=== PATIENT | male | born 1930 | race Caucasian/White ===

== ENCOUNTER 2016-09-07 12:08 | Emergency (ER) | payer MEDICARE, OTHER ==
[2016-09-07 12:19] VITALS: BP 165/69
--- NOTE | 2016-09-08 07:51 | ER ---
Date of Service: 09/07/2016 SUBJECTIVE: Wyatt presents to the emergency room with complaints of chlorine gas exposure. The patient states that he had mixed some Clorox bleach with some water and vinegar and states that he was using this to clean his bathtub. He states that the mixture began to vaporize and began experiencing difficulties with breathing, chest tightness, and cough. The patient lives approximately [place] minutes from [place] and states that by the time he arrived here to the hospital, his symptoms had resolved. The patient states that by the time he was seen in the ER, he was no longer experiencing any chest pain, shortness of breath, or other symptoms. PAST MEDICAL HISTORY: 1. Hypertension. 2. COPD. 3. Dyslipidemia. 4. Coronary artery disease. 5. Hypertension. MEDICATIONS: 1. Norvasc. 2. Nitrostat. 3. Multivitamin. 4. Lopressor. 5. GenTeal eye drops. 6. Aspirin. 7. DuoNeb. 8. Lipitor. ALLERGIES: NKDA. REVIEW OF SYSTEMS: HEENT: Denies any eye discomfort, sore throat, rhinorrhea, or congestion. He states that he was experiencing some throat discomfort at the onset of the inhalation. Respiratory: Again complains of resolved chest tightness and burning, dyspnea and cough. Cardiac: Denies any chest pain, back pain, arm pain, or other worrisome signs or symptoms. GI: No nausea, vomiting, or diarrhea. No melena, hematochezia, or hematemesis. : Denies any dysuria. Neurologic: Denies any fainting, blackouts, or lightheadedness. PHYSICAL EXAMINATION: General: This is an 85-year-old male patient, who is in no acute distress. Vital Signs: Blood pressure is 168/69, heart rate is 71, temperature is 35.5, respiratory rate is 20, O2 saturations 96%. Skin: Warm, pink, and dry. HEENT: Eyes, PERRLA. Extraocular movements intact. Ears, TMs are clear. Mouth, oral mucosa is moist. Lungs: Clear to auscultation. Heart: Regular rate and rhythm. Abdomen: Soft, nontender. There is no hepatosplenomegaly noted. There is no mass noted. Extremities: Without edema. Neurologic: He is alert, oriented, answers all questions appropriately. His speech is fluent. His gait is within normal limits. LABORATORY DATA: PA and lateral chest x-ray was obtained. There was no evidence of any acute infiltrate or other pathology. EMERGENCY ROOM COURSE: I did contact poison control center. They stated that as his symptoms had completely resolved, he did not require admission or further workup; however, I did decide to perform a chest x-ray to rule out any evidence of any chemically induced pneumonitis or pneumonia. The patient was observed in the emergency room and continued to not experience any significant symptoms and the decision was made to discharge the patient. ASSESSMENT: Exposure to chlorine gas from mixing chemicals. PLAN: The patient will be discharged. He is advised to return to the emergency room if he develops any significant shortness of breath, chest pain, or other worrisome signs or symptoms. His son states that they are working on ventilating his residence and stated that he would be able to stay elsewhere until his residence is able to be re-occupied. All questions were answered. MWK: 09/07/2016 18:42:38 MODL: 09/07/2016 23:04:35 /[id number]
== END 2016-09-07 13:10 | disposition home or self-care (01) ==
LOC: VM.ED 12:08
DX: Z77.098 Contact with and (suspected) exposure to other hazardous, chiefly nonmedicinal, chemicals (principal); I10 Essential (primary) hypertension; I25.10 Atherosclerotic heart disease of native coronary artery without angina pectoris; J44.9 Chronic obstructive pulmonary disease, unspecified; E78.5 Hyperlipidemia, unspecified
CPT/HCPCS: 71020; 99283; 99283-GF

== ENCOUNTER 2017-06-12 07:23 | Inpatient (IN) | payer MEDICARE, OTHER ==
[2017-06-12] MEDS ORDERED: Sodium Chloride 0.9% 10 ML Syringe FLUSH PRN (07:35)
[2017-06-12] MEDS ORDERED: Sodium Chloride 0.9% 1,000 ML IV ONE (07:37)
[2017-06-12] MEDS ORDERED: methylPREDNISolone Sodium Succinate 125 MG/2 ML SDV IV ONE (07:38)
[2017-06-12] MEDS ORDERED: Albuterol/Ipratropium 3.0-0.5 MG/3 ML Neb Soln NEB ONE (07:38)
[2017-06-12] MEDS ORDERED: Azithromycin 500 MG in Sodium Chloride 0.9% 250 ML IV ONE ×2 (08:17→08:28)
[2017-06-12] MEDS ORDERED: cefTRIAXone 2 GM Vial IVPUSH ONE (08:17)
[2017-06-12] MEDS ORDERED: Azithromycin 500 MG Vial ONE (08:24)
[2017-06-12 08:28] LABS: CHLORIDE,CL 105 mmol/L (98-107); SODIUM,NA 140 mmol/L (136-145)
[2017-06-12] MEDS ORDERED: Acetaminophen 325 MG Tab PO PRN (09:42)
[2017-06-12] MEDS ORDERED: Albuterol/Ipratropium 3.0-0.5 MG/3 ML Neb Soln NEB PRN (09:49)
[2017-06-12] MEDS ORDERED: Nitroglycerin 0.4 MG Tab.SL SL PRN (09:49)
[2017-06-12] MEDS ORDERED: Dextran 70/Hypromellose/PF Ophth Soln 0.9 ML UD EYEBOTH PRN (10:00)
[2017-06-12] MEDS: Albuterol/Ipratropium 3.0-0.5 MG/3 ML Neb Soln NEB SCH ×4 (10:54→22:23)
[2017-06-12] MEDS: Metoprolol Tartrate 50 MG Tab PO SCH ×2 (11:05→20:34)
[2017-06-12] MEDS ORDERED: Sodium Chloride 0.9% 500 ML IV SCH (12:45)
--- NOTE | 2017-06-12 12:54 | HP ---
CHIEF COMPLAINT: Cough and shortness of breath. HISTORY OF PRESENT ILLNESS: This is an 86-year-old, who lives independently, who has known COPD, but no longer smokes, who started with a cough productive of sputum, although it was not purulent last evening. He denies fevers. He did use his nebulizer machine. He has been using it maybe each evening around 9 p.m. but he is on no maintenance inhalers. He comes in this morning with family more short of breath. He has not been having fevers. He was 91% on room air, slightly tachycardic, wheezing. He got Solu-Medrol and a nebulizer. He is feeling better. X-ray was showing a right middle lobe infiltrate. White count 17,000. Admission was recommended and patient and family are agreeable. ALLERGIES: He has no known allergies MEDICATIONS: Aspirin. He is not on Plavix due to a history of eye hemorrhage. He is on Lopressor 50 mg 2 times a day. He is on amlodipine 5 mg daily, Lipitor 40 mg daily, DuoNeb 4 times a day p.r.n., Nitrostat as needed for chest pain, multivitamin, and eyedrops Genteal. SOCIAL HISTORY: The patient is . He lives independently out in [place] with some family nearby. He drinks 1 [employer] each evening. He quit smoking back in 2012. He was admitted that year for pneumonia, COPD exacerbation. He has 4 children. FAMILY HISTORY: His father and mother . His mother had lung cancer. MEDICAL HISTORY: A [id number] AR back in 2012. He got a stent to the mid RCA. He has COPD with no recent PFTs. In 2015, he had a FEV1 of 1.03, 54%. FEV1/FVC ratio was 47, so at least moderate obstructive pulmonary disease. 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 He got a pacemaker at that time, but it is now nonfunctional. 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 REVIEW OF SYSTEMS: General: There have been no weight changes. No fever. No chills. HEENT: He said his symptoms started with a sore throat again all starting yesterday. Cardiac: No chest pain. No palpitations. Respiratory: He has had cough. He has had shortness of breath and wheezing. Abdomen: No nausea, vomiting, abdominal pain, diarrhea, or constipation. Musculoskeletal: No new joint aches or pains. Mental status: He is alert. He is not confused. He is not depressed or anxious. Otherwise, all systems reviewed and found to be negative unless otherwise stated. PHYSICAL EXAMINATION: Vital signs: Has a weight of 60.6 kg, blood pressure is 150/69, temp 99, T-max 99.5 on admission, pulse 113, blood pressure 150/69, respiratory rate 22, O2 95 now on room air. General: He is in no acute distress. Heart: Regular rate and rhythm. S1, S2 noted. Respiratory: Lungs sounds are decreased throughout. He has some rhonchi noted in the right mid lung. There is some trace expiratory wheezing but overall air movement is decreased. Abdomen: Positive bowel sounds. Soft and nontender. Extremities: Warm and dry. No edema. Carotid pulses 2+. HEENT: He is wearing glasses. Neck: His throat is supple without lymphadenopathy. LAB WORK: Obtained did show him to have a white count of 17.6, hemoglobin 14.4, platelets 242. INR 0.9. Sodium 140, potassium 4.1, chloride 105, bicarb 27, BUN 20, creatinine 1.2, glucose 115, lactic acid 1.6, calcium 9.1, phosphorus 3.2, magnesium 1.8. ALT 22, AST 20, magnesium 0.9. Troponin less than 0.017. CRP 3.3. BNP 312. Protein 8.3, albumin 3.7. Chest x-ray again shows developing infiltrate in the right mid lung. ASSESSMENT AND PLAN: 1. Sepsis due to community-acquired pneumonia. He has received Rocephin and Zithromax already in the ER. Lactic acid was normal, but we will go ahead and repeat that around 11 a.m. We will continue Zithromax and Rocephin. 2. Chronic obstructive pulmonary disease exacerbation due to community- acquired pneumonia. We will put him on 40 mg of Solu-Medrol and schedule nebulizers. We will have incentive spirometry. 3. Community-acquired pneumonia. Sputum cultures have been ordered. Blood cultures have been done. His influenza testing was negative. 4. Essential hypertension. We will continue his home medications. 5. History of coronary artery disease. We will continue aspirin. 6. History of third-degree heart block. This was procedure related. He is slightly tachycardic currently. We will monitor him on telemetry to evaluate for any dysrhythmias. 7. History of retinal hemorrhage. We will avoid Lovenox as I do believe he will be up and ambulatory and hopefully home in a couple of days. We will put him on SCDs. The plan at this point, the patient is admitted for acute cares for the treatment of pneumonia with IV antibiotics, IV Solu-Medrol. We will repeat lab work tomorrow. He is a code level 3. No CPR intubation. Family is at bedside. MKA: 06/12/2017 09:58:58 MODL: 06/12/2017 12:08:27 /[id number]
--- NOTE | 2017-06-12 17:34 | EDM.PDOC ---
ED HPI GENERAL MEDICAL PROBLEM - General Chief Complaint: Respiratory Problem Time Seen by Provider: 06/12/17 07:30 Source of Information: Reports: Patient History Limitations: Reports: No Limitations - History of Present Illness INITIAL COMMENTS - FREE TEXT/NARRATIVE: Pt. presents to ER with complaints for cough for several days. Denies fever or chills. States that the cough is productive of yellowish sputum. He states that he uses nebulizers and was previously a heavy smoker, but his son states that he has never had a formal diagnosis of COPD. Pt. complaints of some mild GARCIA but no orthopnea or PND. He also complains of a prodrome of sinus congestion as well as sore throat several days prior to the start of the cough. Pt. lives in [place], [place]. Onset Date: 06/11/17 Location: Reports: Chest Severity: Moderate Associated Symptoms: Reports: Cough Throat Pain Score (Numeric/FACES): 2 - Related Data Allergies Allergy/AdvReac Type Severity Reaction Status Date / Time No Known Allergies Allergy Verified 06/12/17 07:50 Home Meds: Home Meds Albuterol/Ipratropium [DuoNeb 3.0-0.5 MG/3 ML] 3 ml NEB QID PRN 01/18/15 [ History] Aspirin [Halfprin] 81 mg PO DAILY 01/18/15 [History] Carboxymethylcell/Hypromellose [GenTeal 0.25-0.3% Gel Drops] 1 drop EYEBOTH DAILY PRN 01/18/15 [History] Metoprolol Tartrate [Lopressor] 50 mg PO BID 01/18/15 [History] Multivitamin [Multi-Vitamin Daily] 1 each PO DAILY 01/18/15 [History] Nitroglycerin [Nitrostat] 0.4 mg SL Q5M PRN 01/18/15 [History] amLODIPine [Norvasc] 5 mg PO DAILY 01/18/15 [History] atorvaSTATin [Lipitor] 40 mg PO DAILY 01/18/15 [History] Past Medical History HEENT History: Reports: Macular Degeneration Other HEENT History: retinal hemorrhage, presbyopia, hypermetrolpia Cardiovascular History: Reports: CAD, High Cholesterol, Hypertension Other Cardiovascular History: aortic stenosis, complete heart block, pace maker placement (no long works), s/p TAVR, electrocution and nonfatal effects of electric current Respiratory History: Reports: COPD, SOB Other Musculoskeletal History: jaw cyst - Past Surgical History HEENT Surgical History: Reports: Cataract Surgery Cardiovascular Surgical History: Reports: Valve Replacement Respiratory Surgical History: Reports: None Other Musculoskeletal Surgeries/Procedures:: 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 Social & Family History - Family History Family Medical History: Noncontributory - Tobacco Use Smoking Status *Q: Former Smoker Years of Tobacco use: 65 Used Tobacco, but Quit: Yes Month/Year Tobacco Last Used: unknown - Alcohol Use Days Per Week of Alcohol Use: 3 Number of Drinks Per Day: 1 Total Drinks Per Week: 3 - Recreational Drug Use Recreational Drug Use: No ED ROS GENERAL - Review of Systems Review Of Systems: See Below Constitutional: Reports: Malaise, Fatigue HEENT: Reports: Rhinitis, Throat Pain Respiratory: Reports: Cough, Sputum Cardiovascular: Reports: No Symptoms, Dyspnea on Exertion. Denies: Orthopnea, PND Endocrine: Reports: No Symptoms GI/Abdominal: Reports: No Symptoms : Reports: No Symptoms Musculoskeletal: Reports: No Symptoms Skin: Reports: No Symptoms Neurological: Reports: No Symptoms Psychiatric: Reports: No Symptoms Hematologic/Lymphatic: Reports: No Symptoms Immunologic: Reports: No Symptoms ED EXAM, GENERAL - Physical Exam Exam: See Below Exam Limited By: No Limitations General Appearance: Alert, WD/WN, No Apparent Distress Ears: Normal External Exam, Normal Canal, Hearing Grossly Normal, Normal TMs Nose: Normal Inspection, Normal Mucosa, No Blood Throat/Mouth: Normal Inspection, Normal Lips, Normal Teeth, Normal Gums, Normal Oropharynx, Normal Voice, No Airway Compromise Head: Atraumatic, Normocephalic Neck: Normal Inspection, Supple, Non-Tender, Full Range of Motion Respiratory/Chest: Decreased Breath Sounds, Rhonchi, Prolonged Expiration Cardiovascular: Normal Peripheral Pulses, Regular Rate, Rhythm, No Edema, No Gallop, No JVD, No Murmur, No Rub Peripheral Pulses: 4+: Radial (L), Radial (R) GI/Abdominal: Normal Bowel Sounds, Soft, Non-Tender, No Organomegaly, No Distention, No Abnormal Bruit, No Mass (Male) Exam: Deferred Rectal (Males) Exam: Deferred Back Exam: Normal Inspection, Full Range of Motion, NT Extremities: Normal Inspection, Normal Range of Motion, Non-Tender, Normal Capillary Refill, No Pedal Edema Neurological: Alert, Oriented, CN II-XII Intact, Normal Cognition, Normal Gait, Normal Reflexes, No Motor/Sensory Deficits Psychiatric: Normal Affect, Normal Mood Skin Exam: Warm, Dry, Intact, Normal Color, No Rash Lymphatic: No Adenopathy EKG INTERPRETATION Rhythm: NSR Course - Vital Signs Last Recorded V/S: Last Vital Signs Temp 36.9 C 06/12/17 13:39 Pulse 96 06/12/17 13:39 Resp 22 H 06/12/17 09:23 BP 111/53 L 06/12/17 13:39 Pulse Ox 93 L 06/12/17 13:39 - Orders/Labs/Meds Orders: Active Orders 24 hr Category Date Time Status RT Aerosol Therapy [RC] .PRN Care 06/12/17 07:38 Active Chest 2V [CR] Stat Exams 06/12/17 07:35 Taken CULTURE BLOOD [BC] Stat Lab 06/12/17 07:47 Received CULTURE BLOOD [BC] Stat Lab 06/12/17 07:52 Received Sodium Chloride 0.9% [Saline Flush] Med 06/12/17 07:35 Active 10 ml FLUSH ASDIRECTED PRN Blood Culture x2 Reflex Set [OM.PC] Stat Oth 06/12/17 07:36 Ordered Peripheral IV Insertion Adult [OM.PC] Routine Oth 06/12/17 07:36 Ordered Medication Orders Acetaminophen (Tylenol) 650 mg PO Q4H PRN PRN Reason: Pain (Mild 1-3)/fever Albuterol/Ipratropium (Duoneb 3.0-0.5 Mg/3 Ml) 3 ml NEB Q4HRRT [facility] Last Admin: 06/12/17 15:02 Dose: 3 ml Admin: 06/12/17 10:54 Dose: 3 ml Albuterol/Ipratropium (Duoneb 3.0-0.5 Mg/3 Ml) 3 ml NEB QID PRN PRN Reason: Shortness of Breath Amlodipine Besylate (Norvasc) 5 mg PO DAILY [facility] Artificial Tears (Tears Naturale Free) 0 each EYEBOTH ASDIRECTED PRN PRN Reason: dry eyes Aspirin (Halfprin) 81 mg PO DAILY [facility] Atorvastatin Calcium (Lipitor) 40 mg PO DAILY [facility] Azithromycin (Zithromax) 500 mg PO DAILY [facility] Stop: 06/16/17 23:00 Ceftriaxone Sodium (Rocephin) 1 gm IVPUSH DAILY [facility] Methylprednisolone Sodium Succinate (Solu-Medrol) 40 mg IVPUSH DAILY [facility] Metoprolol Tartrate (Lopressor) 50 mg PO BID [facility] Last Admin: 06/12/17 11:05 Dose: 50 mg Multivitamins/Minerals (Thera M Plus) 1 tab PO DAILY [facility] Nitroglycerin (Nitrostat) 0.4 mg SL Q5M PRN PRN Reason: Chest Pain Sodium Chloride (Saline Flush) 10 ml FLUSH ASDIRECTED PRN PRN Reason: Keep Vein Open Labs: Laboratory Tests 06/12/17 06/12/17 06/12/17 Range/Units 07:47 07:47 07:47 WBC 17.6 H (4.0-10.0) x10^3/uL RBC 4.63 (4.5-6.0) x10^6/uL Hgb 14.4 (14.0-18.0) g/dL Hct 43.1 (40.0-52.0) % MCV 93.1 H (78.0-93.0) fL MCH 31.1 (26.0-32.0) pg MCHC 33.4 (32.0-36.0) g/dL RDW Coeff of Seth 15.1 H (10.0-15.0) % Plt Count 242 (130-400) x10^3/uL Neut % (Auto) 84.4 H (50.0-80.0) % Lymph % (Auto) 5.8 L (25.0-50.0) % Perry % (Auto) 9.3 (2.0-11.0) % Eos % (Auto) 0.2 (0.0-4.0) % Baso % (Auto) 0.3 (0.2-1.2) % PT 9.8 (9.8-11.8) SEC INR 0.9 L (2.0-3.5) Sodium 140 (136-145) mmol/L Potassium 4.1 (3.5-5.1) mmol/L Chloride 105 (98-107) mmol/L Carbon Dioxide 27 (21-32) mmol/L Anion Gap 12.1 BUN 20 H (7-18) mg/dL Creatinine 1.2 (0.70-1.30) mg/dL Est Cr Clr Drug Dosing 36.73 mL/min Estimated GFR (MDRD) 57 Glucose 115 H (74-106) mg/dL Lactic Acid (0.4-2.0) mmol/L Calcium 9.1 (8.5-10.1) mg/dL Corrected Calcium 9.34 (8.5-10.1) mg/dL Phosphorus 3.2 (2.6-4.7) mg/dL Magnesium 1.8 (1.8-2.4) mg/dL Total Bilirubin 0.9 (0.2-1.0) mg/dL AST 20 (15-37) U/L ALT 22 (16-63) U/L Alkaline Phosphatase 102 (46-116) U/L Troponin I < 0.017 (<=0.056) ng/mL C-Reactive Protein 3.3 H (<=0.9) mg/dL NT-Pro-B Natriuret Pep 312 (<=450) pg/mL Total Protein 8.3 H (6.4-8.2) g/dL Albumin 3.7 (3.4-5.0) g/dL Globulin 4.6 Albumin/Globulin Ratio 0.80 /12/20 Range/Units 07:47 WBC (4.0-10.0) x10^3/uL RBC (4.5-6.0) x10^6/uL Hgb (14.0-18.0) g/dL Hct (40.0-52.0) % MCV (78.0-93.0) fL MCH (26.0-32.0) pg MCHC (32.0-36.0) g/dL RDW Coeff of Seth (10.0-15.0) % Plt Count (130-400) x10^3/uL Neut % (Auto) (50.0-80.0) % Lymph % (Auto) (25.0-50.0) % Perry % (Auto) (2.0-11.0) % Eos % (Auto) (0.0-4.0) % Baso % (Auto) (0.2-1.2) % PT (9.8-11.8) SEC INR (2.0-3.5) Sodium (136-145) mmol/L Potassium (3.5-5.1) mmol/L Chloride (98-107) mmol/L Carbon Dioxide (21-32) mmol/L Anion Gap BUN (7-18) mg/dL Creatinine (0.70-1.30) mg/dL Est Cr Clr Drug Dosing mL/min Estimated GFR (MDRD) Glucose (74-106) mg/dL Lactic Acid 1.6 (0.4-2.0) mmol/L Calcium (8.5-10.1) mg/dL Corrected Calcium (8.5-10.1) mg/dL Phosphorus (2.6-4.7) mg/dL Magnesium (1.8-2.4) mg/dL Total Bilirubin (0.2-1.0) mg/dL AST (15-37) U/L ALT (16-63) U/L Alkaline Phosphatase (46-116) U/L Troponin I (<=0.056) ng/mL C-Reactive Protein (<=0.9) mg/dL NT-Pro-B Natriuret Pep (<=450) pg/mL Total Protein (6.4-8.2) g/dL Albumin (3.4-5.0) g/dL Globulin Albumin/Globulin Ratio Meds: Medications Generic Name Dose Route Start Last Admin Trade Name Freq PRN Reason Stop Dose Admin Acetaminophen 650 mg 06/12/17 09:42 Tylenol PO Q4H PRN Pain (Mild 1-3)/fever Albuterol/Ipratropium 3 ml 06/12/17 11:00 06/12/17 15:02 Duoneb 3.0-0.5 Mg/3 Ml NEB 3 ml Q4HRRT ESVIN Administration Albuterol/Ipratropium 3 ml 06/12/17 09:49 Duoneb 3.0-0.5 Mg/3 Ml NEB QID PRN Shortness of Breath Amlodipine Besylate 5 mg 06/13/17 08:00 Norvasc PO DAILY [facility] Artificial Tears 0 each 06/12/17 10:00 Tears Naturale Free EYEBOTH ASDIRECTED PRN dry eyes Aspirin 81 mg 06/13/17 08:00 Halfprin PO DAILY [facility] Atorvastatin Calcium 40 mg 06/13/17 08:00 Lipitor PO DAILY [facility] Azithromycin 500 mg 06/13/17 08:00 Zithromax PO 06/16/17 23:00 DAILY [facility] Ceftriaxone Sodium 1 gm 06/13/17 08:00 Rocephin IVPUSH DAILY [facility] Methylprednisolone Sodium Succinate 40 mg 06/13/17 08:00 Solu-Medrol IVPUSH DAILY [facility] Metoprolol Tartrate 50 mg 06/12/17 10:00 06/12/17 11:05 Lopressor PO 50 mg BID ESVIN Administration Multivitamins/Minerals 1 tab 06/13/17 08:00 Thera M Plus PO DAILY [facility] Nitroglycerin 0.4 mg 06/12/17 09:49 Nitrostat SL Q5M PRN Chest Pain Sodium Chloride 10 ml 06/12/17 07:35 Saline Flush FLUSH ASDIRECTED PRN Keep Vein Open Discontinued Medications Generic Name Dose Route Start Last Admin Trade Name Freq PRN Reason Stop Dose Admin Albuterol/Ipratropium 3 ml 06/12/17 07:38 06/12/17 08:12 Duoneb 3.0-0.5 Mg/3 Ml NEB 06/12/17 07:39 3 ml ONETIME ONE Administration Azithromycin Confirm 06/12/17 08:24 06/12/17 10:48 Zithromax Administered 06/12/17 08:25 Not Given Dose 500 mg .ROUTE .STK-MED ONE Ceftriaxone Sodium 2 gm 06/12/17 08:17 06/12/17 08:26 Rocephin IVPUSH 06/12/17 08:18 2 gm ONETIME ONE Administration Sodium Chloride 1,000 mls @ 250 mls/hr 06/12/17 07:37 06/12/17 08:00 Normal Saline IV 06/12/17 11:36 250 mls/hr .BOLUS ONE Administration Azithromycin 500 mg/ Sodium 250 mls @ 250 mls/hr 06/12/17 08:17 06/12/17 08: 40 Chloride IV 06/12/17 09:16 250 mls/hr ONETIME ONE Administration Azithromycin 500 mg/ Sodium 250 mls @ 250 mls/hr 06/12/17 08:28 06/12/17 10: 48 Chloride IV 06/12/17 08:29 Not Given ONETIME ONE Sodium Chloride 500 mls @ 100 mls/hr 06/12/17 12:45 06/12/17 12:56 Normal Saline IV 06/12/17 17:44 Not Given ASDIRECTED ESVIN Methylprednisolone Sodium Succinate 125 mg 06/12/17 07:38 06/12/17 08:00 Solu-Medrol IV 06/12/17 07:39 125 mg ONETIME ONE Administration - Radiology Interpretation Free Text/Narrative:: Possible early R middle lobe infiltrate Departure - Departure Time of Disposition: 19:17 Disposition: Admitted As Inpatient 65 Clinical Impression: Right middle lobe pneumonia, COPD exacerbation - Discharge Information - My Orders Last 24 Hours: My Active Orders 06/12/17 07:35 Chest 2V [CR] Stat Sodium Chloride 0.9% [Saline Flush] 10 ml FLUSH ASDIRECTED PRN 06/12/17 07:36 Blood Culture x2 Reflex Set [OM.PC] Stat Peripheral IV Insertion Adult [OM.PC] Routine 06/12/17 07:38 RT Aerosol Therapy [RC] .PRN 06/12/17 07:47 CULTURE BLOOD [BC] Stat 06/12/17 07:52 CULTURE BLOOD [BC] Stat - Assessment/Plan Last 24 Hours: My Active Orders 06/12/17 07:35 Chest 2V [CR] Stat Sodium Chloride 0.9% [Saline Flush] 10 ml FLUSH ASDIRECTED PRN 06/12/17 07:36 Blood Culture x2 Reflex Set [OM.PC] Stat Peripheral IV Insertion Adult [OM.PC] Routine 06/12/17 07:38 RT Aerosol Therapy [RC] .PRN 06/12/17 07:47 CULTURE BLOOD [BC] Stat 06/12/17 07:52 CULTURE BLOOD [BC] Stat
[2017-06-13] MEDS: Albuterol/Ipratropium 3.0-0.5 MG/3 ML Neb Soln NEB SCH ×6 (02:15→22:38)
[2017-06-13] MEDS: Azithromycin 250 MG Tab PO SCH (08:01)
[2017-06-13] MEDS: Multivitamins with Iron/Calcium/Folic Acid/Minerals Tab PO SCH (08:02)
[2017-06-13] MEDS: atorvaSTATin 40 MG Tab PO SCH (08:02)
[2017-06-13] MEDS: amLODIPine 5 MG Tab PO SCH (08:03)
[2017-06-13] MEDS: Aspirin 81 MG Tab.EC PO SCH (08:03)
[2017-06-13] MEDS: Metoprolol Tartrate 50 MG Tab PO SCH ×2 (08:03→20:08)
[2017-06-13] MEDS: methylPREDNISolone Sodium Succinate 40 MG/1 ML SDV IVPUSH SCH (08:19)
[2017-06-13] MEDS: cefTRIAXone 1 GM Vial IVPUSH SCH (08:25)
--- NOTE | 2017-06-13 10:57 | PN ---
Progress Note for MAUREEN HERNANDEZ Date: 06/13/2017 Room #: VM.204 SUBJECTIVE: Hospital day #2 on an 86-year-old admitted with right middle lobe pneumonia and a COPD exacerbation. He is still coughing. He is not bringing up much sputum, but did bring up just enough for a sputum sample. It was grayish in color. No blood. He has been afebrile. He has had tachycardia since admission, but it is improving. His lactic acid did go up yesterday to 3.9. We placed him on some oxygen and it came back down to 3.2. He did receive some IV fluids. He is otherwise eating and drinking okay. He denies any abdominal or chest pain. He does feel short of breath. His nebulizers have helped. He uses them at home. OBJECTIVE: Vital Signs: His temperature is 97.5, pulse 101, blood pressure 121/58, respiratory rate 20, O2 94% on 2 L. General: He is in no acute distress. Heart: Regular rate and rhythm with tachycardia. Lungs: Sounds are decreased throughout. Rhonchi noted over the right base. No wheezing appreciated, but decreased air movement was noted. Abdomen: Nondistended, nontender. Extremities: Warm and dry. No edema. Mental Status: He is alert. He is oriented x3. ASSESSMENT AND PLAN: 1. Sepsis due to community-acquired pneumonia. Lactic acid is trending down yesterday. We will repeat tomorrow. 2. Chronic obstructive pulmonary disease exacerbation with community-acquired pneumonia. We will continue Solu-Medrol 40 mg daily scheduled nebulizers. We will do incentive spirometry and RT for a flutter valve. 3. Community-acquired pneumonia, day #2 on Rocephin IV and Zithromax. Change to oral today. We will continue with the same. I believe his white count went up due to steroids in the ER. We will repeat tomorrow. 4. Essential hypertension. He is on his home medications including metoprolol. His tachycardia has improved. We will discontinue telemetry. 5. Coronary artery disease. He will continue aspirin. 6. History of retinal hemorrhage. We will avoid Lovenox. We will try to get him more up and ambulatory. He is also on SCDs. PLAN: At this point, the patient will continue acute cares. We will repeat a chest x-ray today. We will continue IV steroids, IV antibiotics. We will get PT involved. Anticipate, he will at least need 1 more night of stay. We will continue oxygen, although his sats are in the low 90s. I believe this will help in his recovery, especially with the lactic acid being elevated. MKA: 06/13/2017 08:50:24 MODL: 06/13/2017 09:15:02 /[id number]
[2017-06-14] MEDS: Albuterol/Ipratropium 3.0-0.5 MG/3 ML Neb Soln NEB SCH ×2 (02:39→07:07)
[2017-06-14] MEDS: Metoprolol Tartrate 50 MG Tab PO SCH ×2 (08:48→20:41)
[2017-06-14] MEDS: Aspirin 81 MG Tab.EC PO SCH (08:48)
[2017-06-14] MEDS: atorvaSTATin 40 MG Tab PO SCH (08:48)
[2017-06-14] MEDS: amLODIPine 5 MG Tab PO SCH (08:48)
[2017-06-14] MEDS: Azithromycin 250 MG Tab PO SCH (08:48)
[2017-06-14] MEDS: Multivitamins with Iron/Calcium/Folic Acid/Minerals Tab PO SCH (08:48)
[2017-06-14] MEDS: cefTRIAXone 1 GM Vial IVPUSH SCH (08:49)
[2017-06-14] MEDS: methylPREDNISolone Sodium Succinate 40 MG/1 ML SDV IVPUSH SCH (08:49)
--- NOTE | 2017-06-14 10:25 | PN ---
Progress Note for MAUREEN HERNANDEZ Date: 06/14/2017 Room #: VM.204 SUBJECTIVE: Hospital day #3 for an 86-year-old admitted with pneumonia and a COPD exacerbation. The patient was taken off oxygen this morning. He did drop to 85%. He had just gotten up, he was sitting, eating breakfast. He is not on oxygen at home, but has had COPD for many years. He is saturating in the mid 90s on 2 L. He does not feel short of breath. He was up walking with therapy. He did quite well. He is still coughing, not really getting anything up today. He is not wheezing. He is getting scheduled nebs. He is getting IV Solu- Medrol. He is getting Rocephin and Zithromax. He has been afebrile. OBJECTIVE: Vital Signs: Temperature 98.2, pulse 78, blood pressure 118/60, respiratory rate 18, and O2 94% on 2 L and 85% on room air. General: He is in no acute distress. Heart: Regular rate and rhythm. He is still slightly tachycardic. Lungs: Lung sounds are clear to auscultation in the upper bases, but decreased in the lower bases. No crackles, no wheezing appreciated today, but air movement could definitely be improved. He has been on incentive spirometry, he was able to get up to about 1000. Extremities: He has no edema. Abdomen: Nontender. Mental Status: Alert and orientated x3. LABORATORY DATA: Lab work today did show white count improving down to 19.7, hemoglobin 12.5, and platelets 230. Sodium 142, potassium 4.4, chloride 106, bicarb 27, BUN 29, creatinine 1.2, glucose 115, calcium 8.5, and lactic normal at 2. ASSESSMENT: 1. Acute sepsis due to community-acquired pneumonia. Lactic acid has resolved. We will continue current IV antibiotics planned for this morning. His blood cultures have been negative. His sputum culture was showing few Gram positive cocci in pairs. 2. Chronic obstructive pulmonary disease with exacerbation. He will continue Solu-Medrol 40 mg daily. He will continue scheduled nebulizers. I am going to start him on some long-acting bronchodilators like Brovana today. 3. Community-acquired pneumonia, day #3 Rocephin and oral Zithromax. Continue with the same. 4. Essential hypertension, under good control. He is on his home medications. 5. Coronary artery disease. We will continue aspirin. 6. History of retinal hemorrhage. He is not on deep vein thrombosis prophylaxis pharmacologically, but is on SCDs. PLAN: At this point, we will get him up working with RT for home O2 eval. He would really like to try to go home later today, but we will reassess after his home O2 eval. He had a chest x-ray yesterday, which was showing just small amounts of pleural effusions bilaterally. He did get some fluid initially for treatment of his sepsis. I do not feel that he is having any heart failure issues currently. We will continue to monitor him clinically. MKA: 06/14/2017 08:48:58 MODL: 06/14/2017 09:17:29 /[id number]
[2017-06-14] MEDS: Albuterol 0.083% 2.5 MG/3 ML Neb Soln NEB SCH ×4 (10:36→23:06)
[2017-06-14] MEDS: Arformoterol 15 MCG/2 ML Neb Soln NEB SCH ×2 (10:55→20:40)
[2017-06-14] MEDS: Tiotropium Inhaler 18 MCG Inhalation Powder Cap Kit of 5 INH SCH (10:55)
[2017-06-14] MEDS ORDERED: Arformoterol 15 MCG/2 ML Neb Soln NEB SCH (20:00)
[2017-06-15] MEDS: Albuterol 0.083% 2.5 MG/3 ML Neb Soln NEB SCH ×2 (04:18→07:15)
[2017-06-15] MEDS: Arformoterol 15 MCG/2 ML Neb Soln NEB SCH (07:15)
[2017-06-15] MEDS: cefTRIAXone 1 GM Vial IVPUSH SCH (07:54)
[2017-06-15] MEDS: methylPREDNISolone Sodium Succinate 40 MG/1 ML SDV IVPUSH SCH (07:55)
[2017-06-15] MEDS: Aspirin 81 MG Tab.EC PO SCH (08:08)
[2017-06-15] MEDS: Metoprolol Tartrate 50 MG Tab PO SCH (08:09)
[2017-06-15] MEDS: atorvaSTATin 40 MG Tab PO SCH (08:09)
[2017-06-15] MEDS: amLODIPine 5 MG Tab PO SCH (08:10)
[2017-06-15] MEDS: Tiotropium Inhaler 18 MCG Inhalation Powder Cap Kit of 5 INH SCH (08:11)
[2017-06-15] MEDS: Multivitamins with Iron/Calcium/Folic Acid/Minerals Tab PO SCH (08:12)
[2017-06-15] MEDS: Azithromycin 250 MG Tab PO SCH (08:13)
[2017-06-15 09:47] VITALS: BP 140/57
[2017-06-15] MEDS ORDERED: Cefuroxime 250 MG Tab PO SCH (20:00)
[2017-06-16] MEDS ORDERED: predniSONE 20 MG Tab PO SCH (08:00)
--- NOTE | 2017-06-16 08:11 | DISCH ---
PRIMARY DISCHARGE DIAGNOSES: 1. Sepsis secondary to community-acquired pneumonia. 2. Chronic obstructive pulmonary disease exacerbation due to community- acquired pneumonia. 3. Community-acquired pneumonia. Blood cultures negative. Sputum showed Staph coagulase negative. 4. Hypoxia due to chronic obstructive pulmonary disease and pneumonia. Newly discharged on home oxygen. 5. Essential hypertension, controlled. 6. Coronary artery disease. 7. History of transcutaneous aortic valve replacement. 8. History of retinal hemorrhage. REASON FOR ADMISSION: On the date of admission, this 86-year-old male who lives independently, was brought into the ER by family after having 1 day of increasing cough and shortness of breath. His oxygen saturations at one point were down into the mid 80s. He was placed on oxygen, given IV fluids, treated with IV Rocephin and oral Zithromax. His lactic acid was originally normal did increase up to 3.9, but trended down to normal at 2.0. White count 17,000, did go up to 22.8, trending down to 19.7 on the day prior to discharge. Otherwise, he was breathing well. He was able to get some stuff coughed up. RT was working with him. He was using a flutter valve. We instituted some Brovana nebs and also Spiriva as he was not on any maintenance treatments at home. Originally before Spiriva, he was getting q.4 hours DuoNebs. He was not requiring any p.r.n. medications. He was then switched over to albuterol. He made gradual improvements, but was still requiring oxygen so on home O2 eval done the day before discharge showed that he required 2 L of oxygen to keep sats above 90%. PHYSICAL EXAMINATION: Vital Signs: Discharge vitals include a temperature 98.1, O2 is 92% on 2 L, pulse 96, blood pressure 152/68. Previous blood pressures were all under excellent control like in the 125/62 range. He is also tachycardic originally, probably due to sepsis. He was continued on metoprolol and did well. He was monitored with telemetry for 24 hours and had no arrhythmias. Lungs: Lung sounds showed improved air entry on discharge. I did not appreciate any crackles or wheezes. Abdomen: Nondistended, nontender. Extremities: Warm and dry. No edema. Mental Status: Alert and orientated x3. DISCHARGE PLANS AND INSTRUCTIONS: He will follow up with Dr. Dumont in the clinic in 2 weeks. He will continue oxygen 2 L at all times. He will use a Spiriva inhaler in the morning. Nebulizers will go to 3 times a day. Prednisone 20 mg for 5 more days. Zithromax 500 mg x1 day, Ceftin 250 mg for 3 more doses. Addendum to Home Health: The patient was seen [id number] on 06/15/2017. He requires nursing for teaching and assistance with inhalers given his recent COPD exacerbation and being newly instituted on maintenance inhalers. He has dyspnea with exertion and does require assist of another to leave his home. He no longer drives due to vision problems. I will periodically review this plan of care. MKA: 06/15/2017 09:31:17 MODL: 06/16/2017 08:06:35 /[id number]
== END 2017-06-15 10:31 | disposition home health service (06) | DRG 871 ==
LOC: VM.ED 07:23 → VM.MS 09:04
PROVIDERS: ADMIT Internal Medicine; ATTEND Internal Medicine
DX: A41.9 Sepsis, unspecified organism (principal); J18.9 Pneumonia, unspecified organism; J44.0 Chronic obstructive pulmonary disease with (acute) lower respiratory infection; E78.00 Pure hypercholesterolemia, unspecified; J44.1 Chronic obstructive pulmonary disease with (acute) exacerbation; I10 Essential (primary) hypertension; I25.10 Atherosclerotic heart disease of native coronary artery without angina pectoris; E78.5 Hyperlipidemia, unspecified; R09.02 Hypoxemia; I44.2 Atrioventricular block, complete; R53.81 Other malaise; R53.83 Other fatigue; R07.0 Pain in throat; R05 Cough; R06.02 Shortness of breath; R06.00 Dyspnea, unspecified; J31.0 Chronic rhinitis; H35.30 Unspecified macular degeneration; H52.4 Presbyopia; H52.00 Hypermetropia, unspecified eye; I25.2 Old myocardial infarction; Z95.2 Presence of prosthetic heart valve; Z95.0 Presence of cardiac pacemaker; Z89.422 Acquired absence of other left toe(s); Z95.5 Presence of coronary angioplasty implant and graft; Z79.82 Long term (current) use of aspirin; Z79.899 Other long term (current) drug therapy; Z89.421 Acquired absence of other right toe(s); Z87.891 Personal history of nicotine dependence; Z66 Do not resuscitate
CPT/HCPCS: 36415; 71046; 80053; 83605; 83735; 83880; 84100; 84484; 85025; 85610; 86140; 87040 ×2; 87070; 87205; 87804 ×2; 93005; 94640; 96361; 96365; 96375; 99284; 99285; J0456; J0696; J2930; J7030; J7050; 80048; 94664; 94667; 94668; 94760; 97161-GP; A9270-GY; J2920; J7620-GY